=== PATIENT | male | born 1985 | race Caucasian/White ===

== ENCOUNTER 2016-06-27 16:56 | Emergency (ER) | payer OTHER ==
[~2016-06-27] VITALS: Ht 179.1 cm; Wt 77.1 kg
[2016-06-27] MEDS ORDERED: AUGMENTIN 875-1 EACH PO (18:12)
[2016-06-27] MEDS ORDERED: TYLENOL EXTRA500 M2 PO (18:12)
[2016-06-27] MEDS ORDERED: POTASSIUM99 M1 PO (18:12)
[2016-06-27] MEDS ORDERED: PREDNISONE20 M1 PO (18:13)
[2016-06-27] MEDS ORDERED: MAGNESIUM500 M2 PO (18:13)
--- NOTE | 2016-06-27 19:22 | ED HAND/WRIST INJURY COMPLAINT ---
History of Present Illness General Chief Complaint: Hand or Wrist Injury Stated Complaint: LFT FINGER INJURY/? INFECTION Source: patient Exam Limitations: no limitations Vital Signs & Intake/Output Vital Signs & Intake/Output Vital Signs Date Time Temp Pulse Resp B/P B/P Pulse O2 O2 Flow FiO2 Mean Ox Delivery Rate 06/27 1702 99.4 60 20 128/80 97 Room Air Allergies Coded Allergies: No Known Allergies (06/27/16) Reconcile Medications Acetaminophen (Tylenol Extra Strength) 500 MG TABLET 1 TAB PO TID PRN BACK PAIN (Reported) Amoxicillin 500 MG TABLET 1 TAB PO TID CELLULITIS Amoxicillin/Potassium Clav (Augmentin 875-125 Tablet) 875 MG-125 MG TABLET 1 TAB PO BID INFECTION (Reported) Magnesium Oxide (Magnesium) (Unknown Strength) CAPSULE (Unknown Dose) PO DAILY SUPPLEMENT (Reported) Oxycodone HCl/Acetaminophen (Percocet 5-325 MG Tablet) 5 MG-325 MG TABLET 1-2 TAB PO Q6P pain Potassium Gluconate (Potassium) (Unknown Strength) TABLET (Unknown Dose) PO DAILY SUPPLEMENT (Reported) Prednisone 20 MG TABLET 1 TAB PO DAILY ?BACK PAIN (Reported) Sulfamethoxazole/Trimethoprim (Bactrim Ds Tablet) 800 MG-160 MG TABLET 1 TAB PO BID CELLULITIS Triage Note: TRIAGE: PT TO ER C/C PAIN/SWELLING TO L PINKY FINGER X 4 DAYS. TRYING ADVIL, TYLENOL AND WARM SOAKS WITH NO REAL RELIEF. NO KNOWN INJURY. Triage Nurses Notes Reviewed? yes Occurred: just prior to arrival Timing: recent history Injury Environment: home Severity: mild, moderate Pain/Injury Location: Left: 5th finger. Method of Injury: unknown No Modifying Factors: none HPI: 30-year-old male comes into emergency room with complaints of pain and redness and swelling to his left fifth finger. Symptoms began last week. Patient reports that his nail got caught on the bed and slightly lifted upward. He then started to develop some redness and swelling to the area. He denies any crush injuries. Patient saw his doctor 2 days ago who started him on Augmentin. Denies any other associated symptoms at this time. Sharp throbbing pain. Continuous. (ABNER BURT) Past History Travel History Traveled to [place] past 21 day No Medical History Any Pertinent Medical History? see below for history Neurological: NONE EENT: NONE Cardiovascular: NONE Respiratory: NONE Gastrointestinal: NONE Hepatic: NONE Renal: NONE Musculoskeletal: NONE Psychiatric: NONE Endocrine: NONE Blood Disorders: NONE Cancer(s): NONE PURSE SEINING HAND/Reproductive: NONE Surgical History Surgical History: non-contributory Psychosocial History What is your primary language Guamanian Tobacco Use: Never used ETOH Use: occasional use Illicit Drug Use: denies illicit drug use Family History Hx Contributory? No (ABNER BURT) Review of Systems Review of Systems Constitutional: Reports: no symptoms. EENTM: Reports: no symptoms. Respiratory: Reports: no symptoms. Cardiovascular: Reports: no symptoms. GI: Reports: no symptoms. Genitourinary: Reports: no symptoms. Musculoskeletal: Reports: no symptoms. Skin: Reports: see HPI. Neurological/Psychological: Reports: no symptoms. Hematologic/Endocrine: Reports: no symptoms. Immunologic/Allergic: Reports: no symptoms. All Other Systems: Reviewed and Negative (ABNER BURT) Physical Exam Physical Exam General Appearance: well developed/nourished, mild distress Head: atraumatic Eyes: Bilateral: normal appearance. Ears, Nose, Throat: normal ENT inspection, hearing grossly normal Neck: normal inspection Cardiovascular/Respiratory: no respiratory distress Back: normal inspection Hand Left: swelling, tender, 5th finger, erythema, Hand Right: normal inspection Neurologic/Tendon: normal motor functions, normal tendon functions, responds to pain, no evidence tendon injury, decrease in sensation Skin: intact, normal color, warm/dry Lymphatic: no anterior cervical lillie (ABNER BURT) Progress Differential Diagnosis: abscess, cellulitis, felon, paronychia, septic arthritis , sprain, tenosynovitis Plan of Care: Orders Procedure Date/time Status EXTREMETIES CULTURE 06/27 1932 Active Microbiology 06/27 1929 EXTREMITIE: Culture & Sensitivity - RECD 06/27 1929 EXTREMITIE: Gram Stain - RECD Comments: 06/27/2016 8:22:25 PM Patient given dose of IV antibiotics. Started on Bactrim and amoxicillin. Referred to plastic surgery. Small amount of pus on drainage. Continue warm soaks. Return if any other concerns. Call plastic surgeon on Wednesday. (ABNER BURT) Departure Departure Disposition: HOME OR SELF CARE Condition: Stable Clinical Impression Primary Impression: Cellulitis, finger Referrals: RIKI PEREZ,MATTHEW Sherwood (PCP/Family) Additional Instructions: Taking amoxicillin and Bactrim as prescribed. Warm soaks. Follow-up with plastic surgeon provided. Return if any concerns worsening symptoms. Please go over all results of today's visit with your primary care doctor. Contact your primary care doctor to let them know you were here in the emergency room. There may be nonspecific findings which may not be related to your visit today here in the emergency room but may require further evaluation and chronic monitoring by your primary care doctor. If you had a laceration today the chance of foreign body always remains. You should follow-up with your primary care doctor for recheck in 3-5 days for a wound check. If you had an x-ray done there is a chance that a fracture could have been missed on initial read and you should follow-up with your primary care doctor for repeat x-rays if symptoms persist. If your blood pressure was elevated here in the emergency room please have rechecked by her primary care doctor within the next 48 hours by your primary care doctor. If you were prescribed a narcotic here in the emergency room or any type of controlled substances you're not allowed to drive while taking this medication or operate any type of heavy machinery. Narcotics can make you feel lightheaded dizziness nausea and can cause constipation. You may need to excelsior picker a stool softener. Thank you for choosing [facility] emergency room. Please return to the emergency room immediately if you have any other concerns worsening of symptoms. Departure Forms: Customer Survey General Discharge Information Prescriptions: Current Visit Scripts Amoxicillin 1 TAB PO TID #21 TAB Sulfamethoxazole/Trimethoprim (Bactrim Ds Tablet) 1 TAB PO BID #14 TAB Oxycodone HCl/Acetaminophen (Percocet 5-325 MG Tablet) 1-2 TAB PO Q6P #15 TAB (ABNER BURT) PA/CREATIVE WRITING PROFESSOR Co-Sign Statement Statement: ED Attending supervision documentation- [] I saw and evaluated the patient. I have also reviewed all the pertinent lab results and diagnostic results. I agree with the findings and the plan of care as documented in the PA's/CREATIVE WRITING PROFESSOR's documentation. [X] I have reviewed the ED Record and agree with the PA's/CREATIVE WRITING PROFESSOR's documentation. [] Additions or exceptions (if any) to the PAs/CREATIVE WRITING PROFESSOR's note and plan are summarized below: [] (FARZANEH PEREZ,JAX Sanchez) Procedures Additional Procedures Additional Procedures: digital block left fifth finger, 1% lidocaine, Betadine prep, 4 mL injected, small incision made the distal phalanx, small amount of pus , wound culture obtained, broken up with Juliet clamp, dry dressing placed, (HALEY DUMONT,ABNER)
[2016-06-27] MEDS ORDERED: BACTRIM DS TAB1 EACH PO (19:23)
[2016-06-27] MEDS ORDERED: AMOXICILLIN500 M3 PO (19:23)
[2016-06-27] MEDS ORDERED: PERCOCET 5-3251 EACH PO (19:32)
[2016-06-27 21:04] VITALS: BP 134/66
== END 2016-06-27 21:06 ==
LOC: ERH 16:56
DX: L03.012 Cellulitis of left finger (principal)
CPT/HCPCS: 87184; 87070; 87147; 96374